=== PATIENT | male | born 1995 | race Caucasian/White ===

== ENCOUNTER 2017-07-09 12:44 | Emergency (ER) | payer BC ==
[~2017-07-09] VITALS: Ht 175.3 cm; Wt 63.5 kg
[~2017-07-09 12:44] MED LIST: NO RTN MEDS; RANI-315 PO
[2017-07-09] MEDS ORDERED: FLUO-201 PO (12:54)
[2017-07-09] MEDS ORDERED: TRAZ-163 PO (12:54)
[2017-07-09] MEDS ORDERED: BUS5 PO (12:54)
--- NOTE | 2017-07-09 13:32 | ER Report ---
History and Physical Time Seen By MD: 13:32 Hx. of Stated Complaint: PATIENT STATES HE HAS BEEN THROWING UP SINCE LAST NIGHT AND STILL VOMITING AND STATES HE FEELS BETTER FROM LAST NIGHT HPI/ROS CHIEF COMPLAINT: Nausea and vomiting HISTORY OF PRESENT ILLNESS: This is a 21-year-old male who comes into the emergency department for nausea and vomiting. Patient states that 3 days ago he used heroin, did go through some withdrawals now having some nausea and vomiting in addition to cold like symptoms. Patient denies wanting inpatient treatment as he is working with outpatient treatment at this time. Patient does not want anything for the aches or chills he is just requesting something for nausea and vomiting. Patient does state that he feels better since last night. Patient denies shortness of breath, chest pain, mild diarrhea which she says is consistent with what he's had in the past after shooting up heroin. No signs of infection to the site. REVIEW OF SYSTEMS: Respiratory: No cough, no dyspnea. Cardiovascular: No chest pain, no palpitations. Gastrointestinal: As above. Musculoskeletal: No back pain. Allergies: Coded Allergies: No Known Drug Allergies (Verified , 07/09/17) Home Meds Active Scripts Ondansetron (ZOFRAN ODT) 4 Mg Tab.rapdis, 4 MG PO Q6H Y for NAUSEA/VOMITING, # 20 TAB.QAMAR Prov:BAKARI AWAD [employer]- 07/09/17 Reported Medications Trazodone Hcl (TRAZODONE HCL) 100 Mg Tablet, 50 MG PO TID, TAB 07/09/17 Fluoxetine Hcl (PROZAC) 10 Mg Capsule, 0 PO QDAY, CAPSULE 07/09/17 Buspirone Hcl (BUSPIRONE HCL) 5 Mg Tab, 0 PO BID, #10 TAB 07/09/17 [No Rtn Meds] No Conflict Check, 0 Refills 03/04/10 Past Medical/Surgical History Patient has a past medical and surgical history of methamphetamine and heroin abuse, depression, anxiety. Reviewed Nurses Notes: Yes Hx Smoking: No Exposure to Second Hand Smoke?: No Hx Substance Use Disorder: Yes (PAST METH AND HEROIN USE) Hx Alcohol Use: Yes Constitutional Vital Sign - Last 24 Hours 07/09/17 07/09/17 07/09/17 07/09/17 12:50 13:29 13:32 13:44 Temp 98.4 98.1 Pulse 85 68 Resp 17 B/P (MAP) 108/76 111/73 (86) Pulse Ox 94 98 O2 Delivery Room Air 07/09/17 07/09/17 07/09/17 07/09/17 14:00 14:14 14:30 14:44 Pulse 80 71 B/P (MAP) 98/59 (72) 97/52 (67) Pulse Ox 96 92 07/09/17 07/09/17 07/09/17 07/09/17 15:00 15:14 15:30 15:44 Pulse 72 78 B/P (MAP) 101/64 (76) 100/64 (76) Pulse Ox 93 92 07/09/17 07/09/17 07/09/17 07/09/17 16:00 16:14 16:30 16:30 Pulse 76 78 B/P (MAP) 99/62 (74) 95/62 (73) 95/62 (73) Pulse Ox 91 91 07/09/17 17:00 Pulse 87 B/P (MAP) 80/53 (62) Pulse Ox 96 Intake and Output 07/09/17 07/09/17 07/10/17 15:00 23:00 07:00 Intake Total 1000 ml Balance 1000 ml Physical Exam General Appearance: The patient is alert, has no immediate need for airway protection and no current signs of toxicity. Eyes: Pupils equal and round no injection. No nystagmus. Respiratory: Chest is non tender, lungs are clear to auscultation. Cardiac: regular rate and rhythm, no murmurs, clicks or rubs. Gastrointestinal: Abdomen is soft and tender to epigastrium with deep palpation , no masses, bowel sounds normal. Musculoskeletal: Neck: Neck is supple and non tender. Extremities have full range of motion and are non tender. Skin: No rashes or lesions. DIFFERENTIAL DIAGNOSIS: After history and physical exam differential diagnosis was considered for nausea and vomiting including but not limited to gastroenteritis, gastritis, appendicitis, and medication side effect, viral syndrome, heroin withdrawals. Medical Decision Making Data Points Laboratory Hematology Test 07/09/17 13:41 Influenza Type A Antigen Negative (NEGATIVE) Influenza Type B Antigen Negative (NEGATIVE) Chemistry Test 07/09/17 13:41 Influenza Type A Antigen Negative (NEGATIVE) Influenza Type B Antigen Negative (NEGATIVE) ED Course/Re-evaluation Clinical Indication for ER IV: Hydration, IV Access ED Course The patient was admitted to room. A history of physical were obtained. Differential diagnoses were considered. An IV was started. A 1 L saline bolus was given. 4 mg IV Zofran was given. The patient did not want to go to the behavioral health unit. I did have one of the techs come down as well as social work and they were to give him additional outpatient information for his heroin use. The patient was feeling much better after the liter of saline and the Zofran and is requesting to go home at this time. The patient was encouraged to follow up as indicated. The patient had no other questions or concerns and was discharged home. 07/09/2017 3:18:58 pm I enter the room the patient was sleeping on his left side he did wake to voice. I did talk to him about how he is feeling he said is feeling better at this point I also asked him if he would be willing to consider going upstairs for detox and possible inpatient addiction therapy. Patient states that he is willing to consider that at this point I will have a psychology clinician come down and speak with the patient and then we'll make a decision as to whether or not he'll go upstairs to behavioral health. 07/09/2017 4:03:26 pm I did speak with Dr. Santos regarding the patient's case. And at this point the patient is still deciding whether or not he was to come in for possible inpatient evaluation. Patient states he was to now wait for his girlfriend to make a decision. Dr. Ibrahim is aware of this. Decision to Disposition Date: Jul 09, 2017 Decision to Disposition Time: 16:49 Depart Departure Latest Vital Signs Vital Signs Date Time Temp Pulse Resp B/P (MAP) Pulse Ox O2 Delivery O2 Flow Rate FiO2 07/09/17 17:00 87 80/53 (62) 96 07/09/17 13:32 98.1 07/09/17 12:50 17 Room Air Impression: Primary Impression: Nausea & vomiting Additional Impression: Heroin abuse Condition: Improved Disposition: HOME OR SELF-CARE New Scripts Ondansetron (ZOFRAN ODT) 4 Mg Tab.rapdis 4 MG PO Q6H Y for NAUSEA/VOMITING, #20 TAB.QAMAR Prov: BAKARI AWAD [employer] 07/09/17 Patient Instructions: Acute Nausea and Vomiting (ED), Narcotic Abuse (DC) Additional Instructions: Drink plenty of fluids. Get plenty of rest. Please follow up with the outpatient resources we have provided regarding narcotic abuse and help. Please try to stop using heroin. May return to the ED for worsening symptoms. Problem Qualifiers Primary Impression: Nausea & vomiting Vomiting type: unspecified Vomiting Intractability: non-intractable Qualified Codes: R11.2 - Nausea with vomiting, unspecified BAKARI AWAD-GARRY Jul 09, 2017 13:32
[2017-07-09] MEDS ORDERED: ONDANSETRON 4 MG/2 ML VIAL IVP ONE (13:50)
[2017-07-09] MEDS ORDERED: NS(*) 0.9% 1000 ML BAG 1,000 ML IV ONE (13:50)
[2017-07-09] MEDS ORDERED: ONDA4TAB PO (16:51)
[2017-07-09 17:00] VITALS: BP 80/53
== END 2017-07-09 17:06 | disposition home or self-care (01) ==
LOC: ER 12:44
DX: R11.2 Nausea with vomiting, unspecified (principal); F19.10 Other psychoactive substance abuse, uncomplicated
CPT/HCPCS: 87502; 96361; 96374; 99284; J2405; J7030